=== PATIENT | male | born 1955 | race Caucasian/White ===

== ENCOUNTER 2017-11-28 05:23 | Inpatient (IN) ==
[2017-11-28] MEDS ORDERED: Chlorhexidine Gluconate 2% 1 Pack (2 Cloths) TOPICAL ONE (05:51)
[2017-11-28] MEDS ORDERED: Metoprolol Tartrate 25 MG Tablet PO ONE (05:51)
[2017-11-28] MEDS ORDERED: Chlorhexidine 4% Topical 120 APPLIC/120 ML Bottle TOPICAL SCH (06:00)
[2017-11-28] MEDS ORDERED: ceFAZolin 2 GM Premix Inj 2 GM/100 ML BAG IV.SIG SCH (06:00)
[2017-11-28] MEDS ORDERED: Vancomycin Inj 1,000 MG in Sodium Chlor 0.9% Inj 250 ML IV.SIG SCH (06:00)
[2017-11-28] MEDS ORDERED: Sodium Chlor 0.9% Inj 40 ML, Bupivacaine Liposo PF 1.3% Inj 20 ML P-ARTICULR SCH ×2 (06:00)
[2017-11-28] MEDS ORDERED: Sodium Chlor 0.9% Inj 500 ML IV.SIG SCH (06:00)
[2017-11-28] MEDS ORDERED: fentaNYL Citrate Inj 250 MCG/5 ML Ampul ONE (06:20)
[2017-11-28] MEDS ORDERED: Famotidine PF Inj 20 MG/2 ML Vial ONE (06:20)
[2017-11-28] MEDS ORDERED: Dexamethasone Inj 20 MG/5 ML Vial IV.PUSH SCH (06:20)
[2017-11-28] MEDS ORDERED: fentaNYL Citrate Inj 100 MCG/2 ML Ampul ONE (06:20)
--- NOTE | 2017-11-28 06:57 | P.DCO ---
- Physical Therapy Physical Therapy: Gait training, Transfer training, bed to chair Hip: Total hip Right Lower Extremity Weight Bearing: Weight bearing as tolerated Right Lower Extremity Range of Motion: Active ROM - Nursing Dressing changes: Do not change dressing Additional instructions: First dressing change in the office - Certification Need for Home Health services: I have seen patient Kashif Frost on 11/28/17. My clinical findings support the need for the requested home health care services because: Need for Home Health Services: Limited ability to care for self, High risk of falls Homebound Certification: I certify that my clinical findings support that this patient is homebound because: Homebound Certification: Post-op weakness, Unsteady gait/balance
[2017-11-28] MEDS ORDERED: SODIUM CHLOR 0.9% IV.SIG SCH ×2 (07:00→10:00)
[2017-11-28] MEDS ORDERED: TRANEXAMIC ACID IV.SIG SCH ×2 (07:00→10:00)
[2017-11-28] MEDS ORDERED: Neostigmine Inj 5 MG/5 ML Syringe IV.PUSH ONE (07:40)
[2017-11-28] MEDS ORDERED: Glycopyrrolate Inj 1 MG/5 ML Syringe IV.PUSH ONE (07:40)
[2017-11-28] MEDS ORDERED: Lidocaine PF 1% Inj 5 ML Syringe INFILTRATN ONE (07:40)
[2017-11-28] MEDS ORDERED: Aluminum/Magnesium/Simethacone Susp 30 ML UDC PO PRN (08:53)
[2017-11-28] MEDS ORDERED: Bisacodyl 10 MG Supp RECTAL PRN (08:53)
[2017-11-28] MEDS ORDERED: Morphine Sulfate Inj 2 MG/ML Vial IV.PUSH PRN (08:53)
--- NOTE | 2017-11-28 08:58 | P.OP ---
- Preoperative Diagnosis (1) Osteoarthritis of right hip - Postoperative Diagnosis (1) Osteoarthritis of right hip Date of procedure: 11/28/17 Procedure: Right total hip arthroplasty Surgeon: Sav Forrest MD Inside Sales Lead: JOEY Mario The surgical procedure was assisted by my Advanced Registered Nurse Practitioner. My LOG CHIPPER presence was necessary throughout this case for the manipulation and positioning of the surgical extremity. My LOG CHIPPER was assisting me throughout the duration of this procedure. The skill set of an Advance Registered Nurse Practitioner was medically necessary to complete this procedure. During the surgical case, the surgical scrub technologist was working at the back table and the Advance Registered Nurse Practitioner was directly assisting me. Operation and Findings: IMPLANT DESCRIPTION: 1. [place] Gription Cup, acetabular size 54. 2. [place] AltrX polyethylene, neutral. 4. [place] femoral stem size 16, no collar, standard offset. 5. Femoral head/neck ceramic, 36, +5. ESTIMATED BLOOD LOSS: 200 cc. JUSTIFICATION FOR PROCEDURE: The patient has end-stage osteoarthritis to the hip. There is an attached conservative measures pathway form in the chart that describes the nonoperative measures that were undertaken prior to consideration of surgical management. The patient understood the risks and benefits of surgical management. See my office notes for further details. PROCEDURE: The patient was brought back to the operative theatre. Adequate anesthesia was obtained. The patient received intravenous []. The patient was carefully placed on the operative table. The lower extremity was prepped and draped in the usual sterile fashion. Fluoroscopic images were obtained. We made a standard anterior incision over the hip. We dissected through the TFL fascia, exposing the anterior capsule. Arthrotomy was performed in a T-shaped fashion. The capsule was tagged with a #2 FiberWire. End-stage arthritis was identified. Osteotomy was performed through the femoral neck exposing the acetabulum. Remnants of the labrum were resected and osteophytes were removed. We sequentially reamed the acetabulum. We trialed the hip and placed the final cup into position. This was done under fluoroscopic guidance to obtain the appropriate inclination and anteversion. A manhole cover was placed into the acetabular component. We then placed the final polyethylene into position and confirmed that it was well seated. Capsular attachments on the calcar and the inner aspect of the greater trochanter were resected. On the proximal aspect of the femur we used a rongeur , box osteotome, canal finder, sequential broaches and lateralizing rasp. We calcar planed the proximal femur. Then thoroughly irrigated the wound. We trialed the hip with the appropriate size stem. Note that initially we tried the 15 stem which seemed to fit very nice and we calcar planed that above the lesser trochanter. However when we were trialing it we found that even the +12 was too short. Therefore we went up to a 16 stem which was more proud than the 15 which allowed us to achieve excellent length and tensioning. We placed the final stem in to position and trialed again. The hip was stable while it was externally rotated 70 degrees when the leg was lowered to the floor. The final head was applied, and final fluoroscopic images were obtained. The wound was thoroughly irrigated again. Interarticular injection of liposomal bupivacaine was given. The capsule was closed with #2 FiberWire and #1 Vicryl. The deep fascia was closed with a #2 Stratafix, followed by 2-0 Vicryl in the skin and Dermabond dressing. Postop plan is to weight-bear as tolerated. DVT prophylaxis will be performed with Jenelle, OSWALD white, early mobilization, and Xarelto 10 mg daily while in the hospital with resumption of outpatient dose of 20 mg daily after discharge.
[2017-11-28] MEDS ORDERED: traMADol/Acetaminophen 37.5/325 MG Tablet PO PRN (09:00)
--- NOTE | 2017-11-28 09:05 | XR ---
EXAM DATE: 11/28/2017 8:45 AM EDT AGE/SEX: 62 years / Male INDICATIONS: Right total hip replacement. CLINICAL DATA: This is the patient's initial encounter. Patient reports that signs and symptoms have been present for 1 day and indicates a pain score of Nonresponsive. MEDICAL/SURGICAL HISTORY: Non-responsive. Non-responsive. COMPARISON: . FINDINGS: 3 spot intraoperative fluoroscopic views of the right hip demonstrate a total hip arthroplasty in tito ce. CONCLUSION: Right total hip arthroplasty. Electronically signed by: Cole Cormier MD 11/28/2017 9:03 AM EDT
[2017-11-28] MEDS ORDERED: Post-op Orders (for Pharmacy) OTHER STA (09:11)
[2017-11-28] MEDS ORDERED: *morphine SULFATE 4 MG/ML PERIprocedure ONLY ONE ×2 (09:21→09:32)
[2017-11-28] MEDS: Sod Chloride 0.9% Inj 1,000 ML IV.CONT SCH (10:01)
--- NOTE | 2017-11-28 10:34 | XR ---
EXAM DATE: 11/28/2017 10:27 AM EDT AGE/SEX: 62 years / Male INDICATIONS: Post-op right total hip. CLINICAL DATA: This is the patient's initial encounter. Patient reports that signs and symptoms have been present for 1 day and indicates a pain score of Nonresponsive. MEDICAL/SURGICAL HISTORY: None. None. COMPARISON: POI, XR HIP AP AND LAT, RIGHT, 07/05/2017. . FINDINGS: Right total hip arthroplasty. No fracture or dislocation. Femoral and acetabular components appear we ll seated. CONCLUSION: Status post right hip arthroplasty. Electronically signed by: Cole Cormier MD 11/28/2017 10:33 AM EDT
[2017-11-28] MEDS: Senna/Docusate Sodium 8.6/50 MG Tablet PO SCH ×2 (11:16→21:35)
[2017-11-28] MEDS: Multivitamin/Minerals Therapeutic Tablet PO SCH ×2 (11:16→21:35)
[2017-11-28] MEDS: traMADol/Acetaminophen 37.5/325 MG Tablet PO PRN ×3 (11:16→19:35)
[2017-11-28] MEDS: Zolpidem Tartrate 5 MG Tablet PO PRN (21:35)
[2017-11-29] MEDS: Zolpidem Tartrate 5 MG Tablet PO PRN
[2017-11-29] MEDS: Sod Chloride 0.9% Inj 1,000 ML IV.CONT SCH ×2 (00:35→11:35)
[2017-11-29 04:41] VITALS: BP 144/82; PULSE 77; RESP 16; TEMP 98; O2SAT 97
[2017-11-29 06:15] LABS: Hematocrit 38.5 % (39.0-51.0); Hemoglobin 12.8 gm/dL (13.0-17.0)
--- NOTE | 2017-11-29 07:30 | P.PNOP ---
Subjective Interval history: The patient is out of bed in chair with minimal pain to the right hip. Patient states he is ready to go home today with home health. The patient reports no longer having groin pain. Physical Exam Vital signs: Vital Signs 11/28/17 09:12 11/28/17 09:15 11/28/17 09:30 Temperature 97.7 F Pulse Rate 94 H 87 72 Respiratory Rate 15 17 16 Blood Pressure 148/86 H 156/82 H 153/85 H Pulse Oximetry 95 97 95 11/28/17 09:45 11/28/17 10:00 11/28/17 10:12 Temperature 97.6 F Pulse Rate 75 74 74 Respiratory Rate 15 15 15 Blood Pressure 141/72 H 140/74 143/82 H Pulse Oximetry 99 99 97 11/28/17 11:46 11/28/17 12:00 11/28/17 16:15 Temperature 98.2 F 97.9 F Pulse Rate 87 76 Respiratory Rate 18 16 18 Blood Pressure 130/79 141/88 H Pulse Oximetry 94 L 95 11/28/17 20:00 11/28/17 20:05 11/29/17 00:00 Temperature 98 F 98.2 F Pulse Rate 89 82 Respiratory Rate 18 18 18 Blood Pressure 142/68 H 126/75 Pulse Oximetry 94 L 99 11/29/17 00:34 11/29/17 04:00 Temperature 98.0 F Pulse Rate 77 Respiratory Rate 18 16 Blood Pressure 144/82 H Pulse Oximetry 97 Intake & Output 11/28/17 11/29/17 11/29/17 18:59 06:59 18:59 Intake Total 2840.82 / 2840.82 1100 / 1100 Output Total 2550 / 2550 1150 / 1150 Balance 290.82 / 290.82 -50 / -50 Weight 108.2 kg 108.4 kg Intake: IV 660.82 / 660.82 1100 / 1100 NS Inj 1,000 ML @ 80 mls/hr IV. 1000 / 1000 CONT .[id number] ETELVINA Rx#:[id number] Cyklokapron Inj 1,082 MG In NS 110.82 / 110.82 Inj 100 ML @ 200 mls/hr IV.SIG ONCE ETELVINA Rx#:[id number] Vancomycin Inj 1,000 MG In NS 250 / 250 Inj 250 ML @ 250 mls/hr IV.SIG TOOLSMITH ETELVINA Rx#:[id number] Ancef 2 GM Premix Inj 2 gm In 100 / 100 100 ml @ 200 mls/hr IV.SIG TOOLSMITH [facility] Rx#:[id number] Ancef Inj 1,000 MG In NS Inj 200 / 200 100 / 100 100 ML @ 200 mls/hr IV.SIG Q6H ETELVINA Rx#:[id number] Oral 480 / 480 Anesthesia Amount 1700 / 1700 Output: Urine 2350 / 2350 1150 / 1150 Estimated Blood Loss 200 / 200 Other: Date of Last Bowel Movement 11/28/17 11/28/17 Narrative: The patient's dressing is clean, dry, and intact. EHL/TA/G are intact. 2+ pedal pulse. The patient's calf is soft and nontender. Sensation is intact to light touch distally. Results - Labs CBC & Chem 7: 11/29/17 05:37 Laboratory Results - last 24 hr 11/28/17 11/29/17 05:55 05:37 Hgb 12.8 L Hct 38.5 L Antibody Screen Negative - Imaging Impressions Hip X-Ray 11/28/17 00:00 CONCLUSION: Right total hip arthroplasty. Hip X-Ray 11/28/17 08:54 CONCLUSION: Status post right hip arthroplasty. - Procedures Right total hip arthroplasty Assessment and Plan - Problem List (1) Status post total hip replacement, right Code(s): Z96.641 - Presence of right artificial hip joint Status: Acute (2) Osteoarthritis of right hip Code(s): M16.11 - Unilateral primary osteoarthritis, right hip Status: Acute - Assessment and Plan POD #1: [Right] total hip arthroplasty 1. Weightbearing as tolerated on [right] lower extremity. 2. Lovenox followed by aspirin for DVT prophylaxis. 3. Ice as needed for swelling. 4. Stable per ortho for discharge to home health today. 5. The patient will follow up with Dr. Forrest and/or JOEY Richards as previously scheduled.
[2017-11-29] MEDS ORDERED: Dexamethasone Inj 20 MG/5 ML Vial IV.PUSH ONE (08:00)
[2017-11-29] MEDS ORDERED: Rivaroxaban 10 MG Tablet PO SCH (08:00)
[2017-11-29] MEDS: Multivitamin/Minerals Therapeutic Tablet PO SCH (08:22)
[2017-11-29] MEDS: Senna/Docusate Sodium 8.6/50 MG Tablet PO SCH (08:22)
[2017-11-29] MEDS: traMADol/Acetaminophen 37.5/325 MG Tablet PO PRN ×3 (08:23→12:35)
--- NOTE | 2017-12-02 20:22 | P.DS ---
Date of admission: 11/28/17 08:54 Primary care physician: Gurpreet Perez MD Attending physician on discharge: Sav Raygoza Anticipated date of discharge: 11/29/17 Brief History from admission: Patient was admitted to the hospital for severe OA of the right hip to have a right total hip arthroplasty. DS: Diagnosis - Discharge Diagnosis (1) Status post total hip replacement, right Status: Acute (2) Osteoarthritis of right hip Status: Acute DS: Summary Hospital Course: The patient was admitted to the hospital for severe osteoarthritis of the right hip to have a [right] total hip arthroplasty. The patient's surgery went well with no complication. The patient is on a [regular] diet. The patient's DVT prophylaxis includes use of [Xarelto]. The patient is weightbearing as tolerated. The patient was discharged [home with home health] and will follow up in the office with Dr. Raygoza and/or JOEY Richards as previously scheduled. - Time Spent with Patient Total time spent providing and/or coordinating discharge services: Greater than 30 minutes - Quality: VTE Deep Vein Thrombosis/Pulmonary Embolism Present on Admission: No Exam Narrative: See last progress note for physical examination. Results Procedures completed during hospitalization: Right total hip arthroplasty - Impressions ITS Impressions Hip X-Ray 11/28/17 08:54 CONCLUSION: Status post right hip arthroplasty. Discharge Plan - Discharge Disposition Patient Disposition: W/Home Health Service - Discharge Condition Condition: Stable - Discharge Order Discharge Orders: Discharge Order (Routine); Ordered 11/28/17 Ordered By: Lisandro Tobias - Discharge Details Anticipated Discharge Date: 11/29/17 - Physicians Team Primary Care Provider: Gurpreet Perez Attending Provider: Sav Raygoza - Rxs /Orders / Referrals /Forms Prescriptions: Continue albuterol sulfate 90 mcg/actuation Hfa Aerosol Inhaler 1 puff INHALATION Q4-6H PRN (Reason: Shortness Of Breath) cholecalciferol (vitamin D3) [Vitamin D3] 1,000 unit Capsule 1,000 unit PO DAILY fluticasone-vilanterol [Breo Ellipta] 100-25 mcg/dose Blister With Device 1 inh INHALATION DAILY losartan 50 mg Tablet 50 mg PO DAILY rivaroxaban [Xarelto] 20 mg Tablet 20 mg PO DAILY Ambulatory Orders / Order Sets / DME: Adjustable Commode 3-in-1 (1 each) (Routine) Location: Determined by Patient Ordered By: Lisandro Tobias Walker With Front Wheels (1 each) (Routine) Location: Determined by Patient Ordered By: Lisandro Tobias Referrals: Sav Raygoza MD [Physician] - See Instructions (f/u in the office as previously scheduled with Dr. Raygoza or JOEY Richards Your appointment has been scheduled for Sunday12/11/17 at 1:20pm If you cannot make this appointment, please call the office to reschedule ) Gurpreet Perez MD [Primary Care Provider] - See Instructions - Discharge Instructions Patient Printed Instructions: Laxative, Stool Softeners (By mouth), How to Choose and Use a Walker (GEN), How to Use a Bedside Commode (GEN), Narcotic Pain Management (DC), Surgical Site Infections (DC), How To Wash Your Hands (DC) , Total Hip Replacement (DC), How to Transfer a Person Safely (DC) Additional Instructions: DO NOT REMOVE DRESSING FOLLOW UP WITH DR. RAYGOZA SCHEDULED TAKE MEDICATIONS PRESCRIBED IN CASE OF EMERGENCY CALL 911 OR RETURN TO [facility] NO STRENUOUS ACTIVITY WEIGHT BEARING TOLERATED - Post Discharge Care Plan Care Plan Goals: Discharge Care Plan Goals for Total Hip Replacement You had a hip replacement surgery. This means your natural hip was replaced with an artificial joint (prosthesis). You may be recovering at home or in a rehabilitation facility. Either way, you must take care of your new hip. Here are some goals to help you heal well. Directions to Meet your Goals: 1. Activity & Exercises: * Take pain medicine as directed by your doctor. * Dont drive until your doctor says its OK. And never drive while taking opioid pain medicine. * Wear the support stockings you were given in the hospital as directed by your surgeon. * Dont sit for more than 30 to 45 minutes at one time. * Dont lean forward while sitting. * Dont cross your legs. * Keep your feet flat on the floor. Dont turn your foot or leg inward. This stresses your hip joint. * Use an elevated toilet seat for 6 weeks after surgery. * Nap if you are tired, but dont stay in bed all day. * Sit on a firm cushion when you ride in a car and avoid sitting too low. Try not to bend your hip too much when getting in and out of the car. 2. Prevent Falls/Injury: * Follow your doctors orders regarding how much weight to put on the affected leg. * Dont bend at the hip when you bend over. Don't bend at the waist to put on socks and shoes. And avoid picking up items from the floor. * Use a cane, crutches, a walker, or handrails until your balance, flexibility, and strength improve. And remember to ask for help from others when you need it. * Free up your hands so that you can use them to keep balance. Use a pauly pack , apron, or pockets to carry things. * Arrange your household to keep the items you need handy. Keep everything else out of the way. * Remove items that may cause you to fall, such as throw rugs and electrical cords. * Use nonslip bath mats, grab bars, an elevated toilet seat, and a shower chair in your bathroom * Sit on a shower stool or chair when you shower to keep from falling. 3. Precautions: * Prevent infection. Any infection will need to be treated immediately. Call your doctor right away if you think you might have an infection. * Tell your dentist that you have an artificial joint and take antibiotics as prescribed before any dental work. * Tell all your healthcare providers about your artificial joint before any medical procedure. * Maintain a healthy weight. Get help to lose any extra pounds. Added body weight puts stress on the joints. 4. Incision Care: * Prevent infection by washing your hands often. If an infection occurs, it will need to be treated right away. * Call your doctor right away if you think you may have an infection. Symptoms include a fever or an incision that leaks white, green, or yellow fluid. * Don't soak your incision in water until your doctor says its OK. This means no hot tubs, bathtubs, or swimming pools. * Follow your doctor's instructions for changing the dressing. * Dont rub the incision, or apply creams or lotions to it. * If you notice any redness or drainage around the bandage site, contact your surgeon's office immediately. 5. Follow-Up: Do Not miss your follow-up appointment. Keep up with all your appointments and yearly check ups When to call your doctor: Call your doctor right away if you have: Hip pain gets worse Pain or swelling in your calf or leg not related to your incision Tenderness or redness in your calf Fever of 100.4F (38C) or higher, or as directed by your healthcare provider Shaking chills Swelling or redness at the incision site gets worse Fluid draining from the incision Call 911: Call 911 right away if you have: Chest pain Shortness of breath Any pain or tenderness in your calf
== END 2017-11-29 14:44 | disposition home health service (06) ==
LOC: HSDC 05:23 → EDSTATUS 07:00 → N06 08:54
PROVIDERS: ADMIT Orthopaedic Surgery; ATTEND Orthopaedic Surgery